=== PATIENT | male | born 1965 | race Caucasian/White ===

== ENCOUNTER 2016-08-18 08:47 | Emergency (ER) | payer MEDICAID ==
[2016-08-18 08:47] VITALS: BMI 27.3
[2016-08-18 08:59] VITALS: TEMP 97.9
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
[2016-08-18] MEDS ORDERED: HYDROmorphone 0.5 mg/0.5 ml ISec IM STA (09:49)
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
[2016-08-18] MEDS ORDERED: HYDROmorphone 1 mg/ml ISec ONE ×2 (10:18→12:04)
[2016-08-18 11:54] VITALS: BP 156/98; PULSE 77; RESP 18
[2016-08-18] MEDS ORDERED: HYDROmorphone 1 mg/ml ISec IM STA (12:00)
[2016-08-18 13:09] VITALS: O2SAT 97
== END 2016-08-18 13:28 | disposition home or self-care (01) ==
LOC: C.ER 08:47
DX: M54.5 Low back pain (principal)

== ENCOUNTER 2017-08-19 13:37 | Inpatient (IN) | payer MEDICAID ==
[2017-08-19 13:37] VITALS: BMI 27.3
[2017-08-19] MEDS ORDERED: Sodium Chloride 0.9% 1,000 ML ONE ×2 (14:01→14:51)
[2017-08-19] MEDS ORDERED: Sodium Chloride 0.9% 1,000 ML IV ONE ×2 (14:09→14:58)
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
[2017-08-19 14:38] LABS: PROTHROMBIN TIME 11.5 SECONDS (9.7-12.2)
[2017-08-19 14:49] LABS: BASO % 0.9 % (0.0-2.0); EOS % 1.6 % (0.0-4.0); HEMOGLOBIN 15.4 g/dL (12.0-18.0); LYMPH % 24.2 % (20.0-40.0); MEAN CELL VOLUME 86.6 fL (80.0-94.0); MEAN CORPUSCULAR HEMOGLOBIN 29.9 pg (27.0-31.0); MEAN CORPUSCULAR HGB CONC 34.5 g/dL (33.0-37.0); MEAN PLATELET VOLUME 7.8 fL (7.2-11.7); MONO % 6.8 % (0.0-10.0); NEUT % 66.5 % (50.0-75.0); RBC 5.17 Mil/uL (4.40-5.90); RED CELL DISTRIBUTION WIDTH 14.5 % (11.5-14.5); WHITE BLOOD COUNT 9.2 K/uL (4.8-10.8)
[2017-08-19 14:50] LABS: BASO # 0.1 K/uL (0.0-0.2); EOS # 0.1 K/uL (0.0-0.7); LYMPH # 2.2 K/uL (1.0-4.3); MONO # 0.6 K/uL (0.0-0.8); NEUT # 6.1 K/uL (1.8-7.0)
[2017-08-19 14:55] LABS: ALB/GLOB RATIO 1.5 (1.0-2.1); ALBUMIN 4.7 g/dL (3.5-5.0); ALT/SGPT 52 U/L (21-72); AST/SGOT 25 U/L (17-59); BLOOD UREA NITROGEN 12 mg/dL (9-20); CALCIUM 9.1 mg/dl (8.6-10.4); GFR AFRICAN-AMERICAN > 60; GFR NON-AFRICAN AMERICAN > 60; LIPASE 60 U/L (23-300)
[2017-08-19] MEDS ORDERED: Potassium Chloride 20 mEq ER Tab PO STA (14:56)
[2017-08-19] MEDS ORDERED: Iohexol 350mg/ml 100 ML ONE (15:05)
[2017-08-19 15:15] LABS: URINE BILIRUBIN NEGATIVE (NEGATIVE); URINE BLOOD NEGATIVE (NEGATIVE); URINE CLARITY Clear (Clear); URINE COLOR Straw (YELLOW); URINE GLUCOSE (UA) NORMAL (Normal); URINE LEUKOCYTE ESTERASE NEG Leu/uL (Negative); URINE PROTEIN NEGATIVE (NEGATIVE); URINE UROBILINOGEN NORMAL mg/dL (0.2-1.0)
[2017-08-19] MEDS ORDERED: Potassium Chloride 20 mEq ER Tab PO ONE (15:29)
[2017-08-19] MEDS ORDERED: Piperacillin/Tazobact 3.375 GM in Sodium Chloride 100 ML IVPB STA (16:51)
--- NOTE | 2017-08-19 16:52 | CT ---
PROCEDURE: CT Abdomen and Pelvis with contrast HISTORY: abd pain, vomiting COMPARISON: 12/20/2015 TECHNIQUE: Contrast dose: 100 mL Visipaque 320 Radiation dose: Total exam DLP = 793.54 mGy-cm. This CT exam was performed using one or more of the following dose reduction techniques: Automated exposure control, adjustment of the mA and/or kV according to patient size, and/or use of iterative reconstruction technique. FINDINGS: LOWER THORAX: Minimal bilateral dependent lower lobe atelectasis. No infiltrate. LIVER: Normal size and contour. Diffusely diminished attenuation consistent with fatty infiltration. No mass. No biliary ductal dilatation. Mild focal fatty sparing about the gallbladder fossa. GALLBLADDER AND BILE DUCTS: Unremarkable. PANCREAS: Unremarkable. No gross lesion or ductal dilatation. SPLEEN: Unremarkable. ADRENALS: Stable 1.7 cm low-density right adrenal mass, likely adrenal adenoma. KIDNEYS AND URETERS: Right parapelvic renal cyst, 1.8 cm, slightly increased in size from prior examination. Recommend correlation with ultrasound examination. No other renal mass. No calculus or hydronephrosis. VASCULATURE: Unremarkable. No aortic aneurysm. BOWEL: Probable early acute diverticulitis at the descending/sigmoid colonic junction. Extensive sigmoid diverticulosis with mural thickening suggestive of chronic muscular hypertrophy.. Jejunojejunostomy noted in left upper quadrant of abdomen. Ectatic loop noted at the jejunostomy site as on prior examination. Multiple dilated small bowel loops noted in the central abdomen. Cannot rule out early mechanical bowel obstruction. Followup advised. APPENDIX: Normal appendix. PERITONEUM: Unremarkable. No free fluid. No free air. LYMPH NODES: Unremarkable. No enlarged lymph nodes. BLADDER: Poorly distended. Grossly unremarkable. REPRODUCTIVE: Normal prostate BONES: No acute fracture. OTHER FINDINGS: None. IMPRESSION: Probable early acute diverticulitis at the descending/sigmoid colonic junction. Chronic diverticulosis of the sigmoid colon. Dilated small bowel loops in the central abdomen common nonspecific. Cannot rule out early mechanical bowel obstruction. Followup advised. Status post jejunojejunostomy. Fatty liver. Stable right adrenal mass, likely adenoma. Increasing size of right parapelvic renal cyst. Recommend correlation with renal ultrasound examination on a nonemergent basis.
[2017-08-19] MEDS ORDERED: Piperacillin/Tazobact 3.375 gm 100 ML IVPB ONE (17:00)
[2017-08-19] MEDS ORDERED: HYDROmorphone 1 mg/ml ISec IVP PRN (19:30)
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
[2017-08-19 20:17] VITALS: RESP 20
[2017-08-19] MEDS: Piperacill/Tazo 3.375gm in Dex 3.375 GM/50 ML BAG IVPB SCH (22:59)
[2017-08-20] MEDS ORDERED: HYDROmorphone 0.5 mg/0.5 ml ISec IVP PRN (01:45)
[2017-08-20] MEDS: Piperacill/Tazo 3.375gm in Dex 3.375 GM/50 ML BAG IVPB SCH ×3 (06:06→22:06)
[2017-08-20] MEDS: Metoprolol Succinate 50 mg XL Tab PO SCH (10:13)
[2017-08-20] MEDS: Enoxaparin 40 mg Syringe SC SCH (10:13)
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
[2017-08-20] MEDS: metroNIDAZOLE IV 500 mg/100 ml 500 MG/100 ML BAG IVPB SCH ×3 (16:18→23:42)
[2017-08-20 17:08] LABS: BASO % 0.5 % (0.0-2.0); EOS # 0.3 K/uL (0.0-0.7); EOS % 4.9 % (0.0-4.0); HEMOGLOBIN 13.9 g/dL (12.0-18.0); LYMPH # 2.9 K/uL (1.0-4.3); LYMPH % 41.3 % (20.0-40.0); MEAN CELL VOLUME 87.1 fL (80.0-94.0); MEAN CORPUSCULAR HEMOGLOBIN 29.6 pg (27.0-31.0); MEAN PLATELET VOLUME 7.8 fL (7.2-11.7); MONO # 0.6 K/uL (0.0-0.8); MONO % 9.3 % (0.0-10.0); NRBC % 0.1 % (0.0-2.0); RBC 4.69 Mil/uL (4.40-5.90); RED CELL DISTRIBUTION WIDTH 14.3 % (11.5-14.5); WHITE BLOOD COUNT 6.9 K/uL (4.8-10.8)
[2017-08-20 17:31] LABS: ALB/GLOB RATIO 1.3 (1.0-2.1); ALBUMIN 4.1 g/dL (3.5-5.0); ALT/SGPT 39 U/L (21-72); AST/SGOT 23 U/L (17-59); BLOOD UREA NITROGEN 13 mg/dL (9-20); CALCIUM 8.3 mg/dl (8.6-10.4); GFR AFRICAN-AMERICAN > 60; GFR NON-AFRICAN AMERICAN > 60
--- NOTE | 2017-08-20 17:42 | CP.PCM.PN ---
Subjective - Date & Time of Evaluation Date of Evaluation: 08/20/17 Time of Evaluation: 08:40 - Subjective Subjective: clinically same Objective - Vital Signs/Intake and Output Vital Signs (last 24 hours): Temp Pulse Resp BP Pulse Ox 98.0 F 77 20 131/88 94 L 08/20/17 15:00 08/20/17 15:00 08/20/17 15:00 08/20/17 15:00 08/20/17 15:00 Intake and Output: 08/20/17 08/20/17 06:59 18:59 Intake Total 0 Balance 0 - Medications Medications: Current Medications Amlodipine Besylate (Norvasc) 10 mg PO DAILY [facility] Last Admin: 08/20/17 10:13 Dose: 10 mg Clopidogrel Bisulfate (Plavix) 75 mg PO DAILY [facility] Last Admin: 08/20/17 10:13 Dose: 75 mg Enoxaparin Sodium (Lovenox) 40 mg SC DAILY [facility] Last Admin: 08/20/17 10:13 Dose: 40 mg Hydrochlorothiazide (Hydrodiuril) 25 mg PO DAILY [facility] Last Admin: 08/20/17 10:13 Dose: 25 mg Hydromorphone HCl (Dilaudid) 1 mg IVP Q8H PRN PRN Reason: Pain, moderate (4-7) Piperacillin Sod/Tazobactam Sod (Zosyn 3.375 Gm Iv Premix) 3.375 gm in 50 mls @ 100 mls/hr IVPB Q8H [facility] PRN Reason: Protocol Last Admin: 08/20/17 14:36 Dose: 100 mls/hr Metronidazole (Flagyl) 500 mg in 100 mls @ 100 mls/hr IVPB Q8H [facility] PRN Reason: Protocol Losartan Potassium (Cozaar) 100 mg PO DAILY [facility] Last Admin: 08/20/17 10:00 Dose: 100 mg Metoprolol Succinate (Toprol Xl) 50 mg PO DAILY [facility] Last Admin: 08/20/17 10:13 Dose: 50 mg Paroxetine HCl (Paxil) 10 mg PO DAILY [facility] Last Admin: 08/20/17 10:00 Dose: 10 mg Potassium Chloride (K-Dur 20 Meq Er Tab) 20 meq PO DAILY [facility] Rosuvastatin Calcium (Crestor) 10 mg PO HS [facility] Last Admin: 08/19/17 21:22 Dose: 10 mg - Labs Labs: 08/20/17 16:58 08/20/17 17:15 PT 11.5 SECONDS (9.7-12.2) 08/19/17 14:44 INR 1.0 08/19/17 14:44 APTT 33 SECONDS (21-34) 08/19/17 14:44 - Constitutional Appears: Well - Head Exam Head Exam: ATRAUMATIC, NORMAL INSPECTION, NORMOCEPHALIC - Eye Exam Eye Exam: EOMI, Normal appearance, PERRL Pupil Exam: NORMAL ACCOMODATION, PERRL - ENT Exam ENT Exam: Mucous Membranes Moist, Normal Exam - Neck Exam Neck Exam: Full ROM, Normal Inspection. absent: Lymphadenopathy - Respiratory Exam Respiratory Exam: Decreased Breath Sounds - Cardiovascular Exam Cardiovascular Exam: REGULAR RHYTHM, +S1, +S2 - GI/Abdominal Exam GI & Abdominal Exam: Soft, Diminished Bowel Sounds - Rectal Exam Rectal Exam: Deferred
[2017-08-20] MEDS: Potassium Chloride 20 mEq ER Tab PO SCH (18:17)
[2017-08-20] MEDS ORDERED: HYDROmorphone 1 mg/ml ISec IVP PRN (22:15)
[2017-08-21] MEDS: Piperacill/Tazo 3.375gm in Dex 3.375 GM/50 ML BAG IVPB SCH ×3 (06:12→22:06)
--- NOTE | 2017-08-21 07:38 | CP.PCM.PN ---
<Marietta Díaz - Last Filed: 08/21/17 09:54> Subjective - Date & Time of Evaluation Date of Evaluation: 08/21/17 Time of Evaluation: 07:00 - Subjective Subjective: Gastroenterology Follow Up Patient was seen and examined at bedside. Patient is tolerating CLD. Reports first bowel movement since admission this morning. Normal, nonbloody formed stool. Patient continues to have mild abdominal pain. 12 point ROS unremarkable. Objective - Vital Signs/Intake and Output Vital Signs (last 24 hours): Temp Pulse Resp BP Pulse Ox 98 F 74 20 132/85 94 L 08/21/17 00:00 08/21/17 00:00 08/21/17 00:00 08/21/17 00:00 08/21/17 00:00 Intake and Output: 08/21/17 08/21/17 06:59 18:59 Intake Total 600 Balance 600 - Medications Medications: Current Medications Amlodipine Besylate (Norvasc) 10 mg PO DAILY [facility] Last Admin: 08/20/17 10:13 Dose: 10 mg Clopidogrel Bisulfate (Plavix) 75 mg PO DAILY [facility] Last Admin: 08/20/17 10:13 Dose: 75 mg Enoxaparin Sodium (Lovenox) 40 mg SC DAILY [facility] Last Admin: 08/20/17 10:13 Dose: 40 mg Hydrochlorothiazide (Hydrodiuril) 25 mg PO DAILY [facility] Last Admin: 08/20/17 10:13 Dose: 25 mg Hydromorphone HCl (Dilaudid) 1 mg IVP Q8H PRN PRN Reason: Pain, moderate (4-7) Piperacillin Sod/Tazobactam Sod (Zosyn 3.375 Gm Iv Premix) 3.375 gm in 50 mls @ 100 mls/hr IVPB Q8H [facility] PRN Reason: Protocol Last Admin: 08/21/17 06:12 Dose: 100 mls/hr Metronidazole (Flagyl) 500 mg in 100 mls @ 100 mls/hr IVPB Q8H [facility] PRN Reason: Protocol Last Admin: 08/20/17 23:42 Dose: 100 mls/hr Losartan Potassium (Cozaar) 100 mg PO DAILY [facility] Last Admin: 08/20/17 10:00 Dose: 100 mg Metoprolol Succinate (Toprol Xl) 50 mg PO DAILY [facility] Last Admin: 08/20/17 10:13 Dose: 50 mg Paroxetine HCl (Paxil) 10 mg PO DAILY [facility] Last Admin: 08/20/17 10:00 Dose: 10 mg Potassium Chloride (K-Dur 20 Meq Er Tab) 20 meq PO DAILY [facility] Last Admin: 08/20/17 18:17 Dose: 20 meq Rosuvastatin Calcium (Crestor) 10 mg PO HS [facility] Last Admin: 08/20/17 22:01 Dose: 10 mg - Labs Labs: 08/20/17 16:58 08/20/17 17:15 PT 11.5 SECONDS (9.7-12.2) 08/19/17 14:44 INR 1.0 08/19/17 14:44 APTT 33 SECONDS (21-34) 08/19/17 14:44 - Constitutional Appears: No Acute Distress - Head Exam Head Exam: NORMAL INSPECTION, NORMOCEPHALIC - Eye Exam Eye Exam: EOMI, Normal appearance Pupil Exam: NORMAL ACCOMODATION - ENT Exam ENT Exam: Mucous Membranes Moist - Respiratory Exam Respiratory Exam: Clear to Ausculation Bilateral, NORMAL BREATHING PATTERN - Cardiovascular Exam Cardiovascular Exam: REGULAR RHYTHM - GI/Abdominal Exam GI & Abdominal Exam: Soft, Tenderness (TTP - LLQ, LRQ ), Normal Bowel Sounds. absent: Distended, Organomegaly - Rectal Exam Rectal Exam: Deferred - Extremities Exam Extremities Exam: Normal Inspection. absent: Pedal Edema, Tenderness - Neurological Exam Neurological Exam: Alert, Awake, Oriented x3 - Psychiatric Exam Psychiatric exam: Normal Affect, Normal Mood - Skin Skin Exam: Dry, Intact, Normal Color, Warm Assessment and Plan - Assessment and Plan (Free Text) Assessment: Fili Benavides is a 52M w/ hx of recurrent diverticulitis, HTN, HL who presents to the ER with complaints of LLQ pain. CT revealed uncomplicated ascending/ sigmoid diverticulitis. Colonoscopy 5 years ago, [facility] [place] unremarkable. Acute sigmoid/ascending diverticulitis Hx of diverticulitis Plan: - Diet advanced to low residue diet - Continue antibiotics, complete outpatient course of cipro and flagyl for 10 days - Will need colonoscopy 8 weeks post hospitalization - Recommend f/u with primary outside sales executive in [facility] [place] - Recommend Surgery consult due to recurrent diverticulitis - We will continue to monitor patient DW Marietta Montero DO, PGY-1 <Ruben Joseph - Last Filed: 08/21/17 10:15> Objective - Vital Signs/Intake and Output Vital Signs (last 24 hours): Temp Pulse Resp BP Pulse Ox 98.6 F 69 20 146/96 H 95 08/21/17 07:47 08/21/17 07:47 08/21/17 07:47 08/21/17 07:47 08/21/17 07:47 Intake and Output: 08/21/17 08/21/17 06:59 18:59 Intake Total 600 Balance 600 - Medications Medications: Current Medications Amlodipine Besylate (Norvasc) 10 mg PO DAILY [facility] Last Admin: 08/21/17 10:06 Dose: 10 mg Clopidogrel Bisulfate (Plavix) 75 mg PO DAILY [facility] Last Admin: 08/21/17 10:07 Dose: 75 mg Enoxaparin Sodium (Lovenox) 40 mg SC DAILY [facility] Last Admin: 08/21/17 10:07 Dose: 40 mg Hydrochlorothiazide (Hydrodiuril) 25 mg PO DAILY [facility] Last Admin: 08/21/17 10:07 Dose: 25 mg Hydromorphone HCl (Dilaudid) 1 mg IVP Q8H PRN PRN Reason: Pain, moderate (4-7) Piperacillin Sod/Tazobactam Sod (Zosyn 3.375 Gm Iv Premix) 3.375 gm in 50 mls @ 100 mls/hr IVPB Q8H [facility] PRN Reason: Protocol Last Admin: 08/21/17 06:12 Dose: 100 mls/hr Metronidazole (Flagyl) 500 mg in 100 mls @ 100 mls/hr IVPB Q8H [facility] PRN Reason: Protocol Last Admin: 08/21/17 08:38 Dose: 100 mls/hr Losartan Potassium (Cozaar) 100 mg PO DAILY [facility] Last Admin: 08/21/17 10:08 Dose: 100 mg Metoprolol Succinate (Toprol Xl) 50 mg PO DAILY [facility] Last Admin: 08/21/17 10:07 Dose: 50 mg Paroxetine HCl (Paxil) 10 mg PO DAILY [facility] Last Admin: 08/21/17 10:07 Dose: 10 mg Potassium Chloride (K-Dur 20 Meq Er Tab) 20 meq PO DAILY [facility] Last Admin: 08/21/17 10:07 Dose: 20 meq Rosuvastatin Calcium (Crestor) 10 mg PO HS [facility] Last Admin: 08/20/17 22:01 Dose: 10 mg - Labs Labs: 08/20/17 16:58 08/20/17 17:15 PT 11.5 SECONDS (9.7-12.2) 08/19/17 14:44 INR 1.0 08/19/17 14:44 APTT 33 SECONDS (21-34) 08/19/17 14:44 Attending/Attestation - Attestation I have personally seen and examined this patient.: Yes I have fully participated in the care of the patient.: Yes I have reviewed all pertinent clinical information, including history, physical exam and plan: Yes Notes (Text): 08/21/17 10:14 Patient seen with GI fellow. This is a 52 yr old M with history of recurrent diverticulitis, last episode about 2 years ago with last colonoscopy 5 years ago with GI in [facility] [place], then now admitted with complaints of LLQ pain. CT revealed uncomplicated ascending/sigmoid diverticulitis. pain is controlled today and he denies nausea, vomiting or constipation. Plan: - Advance diet to low residue today -continue abx, complete outpatient course of cipro and flagyl for 10 day course -will need colonoscopy 8 weeks post hospitalization -recommend f/u with primary outside sales executive at [facility] [place] - recommend surgical consult for recurrent diverticulitis
[2017-08-21] MEDS: metroNIDAZOLE IV 500 mg/100 ml 500 MG/100 ML BAG IVPB SCH ×3 (08:38→23:20)
[2017-08-21] MEDS ORDERED: Metoprolol Succinate 50 mg XL Tab PO SCH (10:00)
[2017-08-21] MEDS: Metoprolol Succinate 50 mg XL Tab PO SCH (10:07)
[2017-08-21] MEDS: Potassium Chloride 20 mEq ER Tab PO SCH (10:07)
[2017-08-21] MEDS: Enoxaparin 40 mg Syringe SC SCH (10:07)
[2017-08-21 11:20] LABS: BASO % 0.5 % (0.0-2.0); EOS # 0.3 K/uL (0.0-0.7); EOS % 4.7 % (0.0-4.0); HEMOGLOBIN 14.8 g/dL (12.0-18.0); LYMPH # 2.4 K/uL (1.0-4.3); LYMPH % 36.3 % (20.0-40.0); MEAN CELL VOLUME 86.8 fL (80.0-94.0); MEAN CORPUSCULAR HEMOGLOBIN 29.6 pg (27.0-31.0); MEAN CORPUSCULAR HGB CONC 34.1 g/dL (33.0-37.0); MEAN PLATELET VOLUME 7.6 fL (7.2-11.7); MONO # 0.6 K/uL (0.0-0.8); MONO % 8.3 % (0.0-10.0); NEUT # 3.4 K/uL (1.8-7.0); NEUT % 50.2 % (50.0-75.0); NRBC % 0.1 % (0.0-2.0); RBC 4.98 Mil/uL (4.40-5.90); RED CELL DISTRIBUTION WIDTH 14.4 % (11.5-14.5); WHITE BLOOD COUNT 6.7 K/uL (4.8-10.8)
[2017-08-21 11:36] LABS: ALB/GLOB RATIO 1.3 (1.0-2.1); ALBUMIN 4.4 g/dL (3.5-5.0); ALT/SGPT 39 U/L (21-72); AST/SGOT 21 U/L (17-59); BLOOD UREA NITROGEN 11 mg/dL (9-20); CALCIUM 8.8 mg/dl (8.6-10.4); GFR AFRICAN-AMERICAN > 60; GFR NON-AFRICAN AMERICAN > 60
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
--- NOTE | 2017-08-21 15:16 | CP.PCM.PN ---
Subjective - Date & Time of Evaluation Date of Evaluation: 08/21/17 Time of Evaluation: 08:00 - Subjective Subjective: clinically same Objective - Vital Signs/Intake and Output Vital Signs (last 24 hours): Temp Pulse Resp BP Pulse Ox 98.6 F 69 20 146/96 H 95 08/21/17 07:47 08/21/17 07:47 08/21/17 07:47 08/21/17 07:47 08/21/17 07:47 Intake and Output: 08/21/17 08/21/17 06:59 18:59 Intake Total 600 Balance 600 - Medications Medications: Current Medications Amlodipine Besylate (Norvasc) 10 mg PO DAILY [facility] Last Admin: 08/21/17 10:06 Dose: 10 mg Clopidogrel Bisulfate (Plavix) 75 mg PO DAILY [facility] Last Admin: 08/21/17 10:07 Dose: 75 mg Enoxaparin Sodium (Lovenox) 40 mg SC DAILY [facility] Last Admin: 08/21/17 10:07 Dose: 40 mg Hydrochlorothiazide (Hydrodiuril) 25 mg PO DAILY [facility] Last Admin: 08/21/17 10:07 Dose: 25 mg Hydromorphone HCl (Dilaudid) 1 mg IVP Q8H PRN PRN Reason: Pain, moderate (4-7) Piperacillin Sod/Tazobactam Sod (Zosyn 3.375 Gm Iv Premix) 3.375 gm in 50 mls @ 100 mls/hr IVPB Q8H [facility] PRN Reason: Protocol Last Admin: 08/21/17 14:57 Dose: 100 mls/hr Metronidazole (Flagyl) 500 mg in 100 mls @ 100 mls/hr IVPB Q8H [facility] PRN Reason: Protocol Last Admin: 08/21/17 08:38 Dose: 100 mls/hr Losartan Potassium (Cozaar) 100 mg PO DAILY [facility] Last Admin: 08/21/17 10:08 Dose: 100 mg Metoprolol Succinate (Toprol Xl) 50 mg PO DAILY [facility] Last Admin: 08/21/17 10:07 Dose: 50 mg Paroxetine HCl (Paxil) 10 mg PO DAILY [facility] Last Admin: 08/21/17 10:07 Dose: 10 mg Potassium Chloride (K-Dur 20 Meq Er Tab) 20 meq PO DAILY [facility] Last Admin: 08/21/17 10:07 Dose: 20 meq Rosuvastatin Calcium (Crestor) 10 mg PO HS [facility] Last Admin: 08/20/17 22:01 Dose: 10 mg - Labs Labs: 08/21/17 10:59 08/21/17 10:59 PT 11.5 SECONDS (9.7-12.2) 08/19/17 14:44 INR 1.0 08/19/17 14:44 APTT 33 SECONDS (21-34) 08/19/17 14:44 - Constitutional Appears: Well - Head Exam Head Exam: ATRAUMATIC, NORMAL INSPECTION, NORMOCEPHALIC - Eye Exam Eye Exam: EOMI, Normal appearance, PERRL Pupil Exam: NORMAL ACCOMODATION, PERRL - ENT Exam ENT Exam: Mucous Membranes Moist, Normal Exam - Neck Exam Neck Exam: Full ROM, Normal Inspection. absent: Lymphadenopathy - Respiratory Exam Respiratory Exam: Decreased Breath Sounds - Cardiovascular Exam Cardiovascular Exam: REGULAR RHYTHM, +S1, +S2 - GI/Abdominal Exam GI & Abdominal Exam: Soft, Diminished Bowel Sounds - Rectal Exam Rectal Exam: Deferred Assessment and Plan - Assessment and Plan (Free Text) Plan: Repeat CAT scan today does not reveal small bowel obstructions Continue IV antibiotic Patient is a diarrhea so will do stool C. difficile Workup for adrenal nodule as an outpatient Continue as ordered
[2017-08-21] MEDS ORDERED: Iohexol 240 (50 ml) PO ONE (16:30)
[2017-08-21] MEDS ORDERED: Iohexol 300 100 ML IJ ONE (17:28)
--- NOTE | 2017-08-21 19:28 | CT ---
EXAM: CT Abdomen and Pelvis With Intravenous Contrast EXAM DATE/TIME: 08/21/2017 2:48 PM CLINICAL HISTORY: 52 years old, male; Pain; Abdominal pain; Flank; Right lower quadrant (rlq); Additional info: Abdominal pain , R/O obstruction TECHNIQUE: Axial computed tomography images of the abdomen and pelvis with intravenous contrast. All CT scans at this facility use one or more dose reduction techniques, viz.: automated exposure control; ma/kV adjustment per patient size (including targeted exams where dose is matched to indication; i.e. head); or iterative reconstruction technique. Coronal and sagittal reformatted images were created and reviewed. CONTRAST: 100 mL of omnipaque 300 administered intravenously. COMPARISON: There are no prior studies for comparison. FINDINGS: Lower thorax: Heart size is normal. There is subsegmental atelectasis/at the lung bases. There is dependent atelectasis at the lung bases. There are no effusions. ABDOMEN: Liver: There is fatty infiltration of the liver. Gallbladder and bile ducts: unremarkable Pancreas: unremarkable Spleen: unremarkable Adrenals: There is nodular thickening of both adrenals. There is a 1.7 x 2.2 cm right adrenal nodule. Kidneys and ureters: unremarkable Stomach and bowel: Stomach is almost completely empty. Rotation is normal. There is an enteral anastomosis in the left upper quadrant. Small bowel edema anastomosis is mildly distended. There is no small bowel obstruction. Small bowel distal to the anastomosis is opacified with contrast. Ileocecal region is unremarkable. Appendix and terminal ileum are unremarkable. There is scattered diverticulosis Appendix: See stomach and bowel PELVIS: Bladder: unremarkable Reproductive: Seminal vesicles and prostate are unremarkable. ABDOMEN and PELVIS: Intraperitoneal space: There is no free air or free fluid. Bones/joints: There are degenerative changes in the osseus structures. Soft tissues: unremarkable Vasculature: There is occasional atherosclerotic calcification in the aorta and iliacs. Lymph nodes: There is no pathologic adenopathy. IMPRESSION: Fatty liver; 1.7 x 2.2 cm right adrenal nodule; no renal or ureteral stones or hydronephrosis; enteral anastomosis in the left upper quadrant, no small bowel obstruction; no CT findings of appendicitis or diverticulitis Additional nonemergent findings as described above.
[2017-08-22] MEDS: Piperacill/Tazo 3.375gm in Dex 3.375 GM/50 ML BAG IVPB SCH (06:01)
--- NOTE | 2017-08-22 07:29 | CP.PCM.PN ---
<Shira Vu - Last Filed: 08/22/17 09:31> Subjective - Date & Time of Evaluation Date of Evaluation: 08/22/17 Time of Evaluation: 06:40 - Subjective Subjective: PGY4 GI Follow-up Pt seen and examined bedside Had 3-4 episodes of loose BM after eating fish and rice Denies any abd pain tolerating food ROS: 10 point ROS conducted, neg other than above Objective - Vital Signs/Intake and Output Vital Signs (last 24 hours): Temp Pulse Resp BP Pulse Ox 98.0 F 69 20 135/84 96 08/22/17 00:00 08/22/17 00:00 08/22/17 00:00 08/22/17 00:00 08/22/17 00:00 Intake and Output: 08/22/17 08/22/17 06:59 18:59 Intake Total 1550 Balance 1550 - Medications Medications: Current Medications Amlodipine Besylate (Norvasc) 10 mg PO DAILY [facility] Last Admin: 08/21/17 10:06 Dose: 10 mg Clopidogrel Bisulfate (Plavix) 75 mg PO DAILY [facility] Last Admin: 08/21/17 10:07 Dose: 75 mg Enoxaparin Sodium (Lovenox) 40 mg SC DAILY [facility] Last Admin: 08/21/17 10:07 Dose: 40 mg Hydrochlorothiazide (Hydrodiuril) 25 mg PO DAILY [facility] Last Admin: 08/21/17 10:07 Dose: 25 mg Hydromorphone HCl (Dilaudid) 1 mg IVP Q8H PRN PRN Reason: Pain, moderate (4-7) Last Admin: 08/21/17 20:57 Dose: 1 mg Piperacillin Sod/Tazobactam Sod (Zosyn 3.375 Gm Iv Premix) 3.375 gm in 50 mls @ 100 mls/hr IVPB Q8H [facility] PRN Reason: Protocol Last Admin: 08/22/17 06:01 Dose: 100 mls/hr Metronidazole (Flagyl) 500 mg in 100 mls @ 100 mls/hr IVPB Q8H [facility] PRN Reason: Protocol Last Admin: 08/21/17 23:20 Dose: 100 mls/hr Losartan Potassium (Cozaar) 100 mg PO DAILY [facility] Last Admin: 08/21/17 10:08 Dose: 100 mg Metoprolol Succinate (Toprol Xl) 50 mg PO DAILY [facility] Last Admin: 08/21/17 10:07 Dose: 50 mg Paroxetine HCl (Paxil) 10 mg PO DAILY [facility] Last Admin: 08/21/17 10:07 Dose: 10 mg Potassium Chloride (K-Dur 20 Meq Er Tab) 20 meq PO DAILY [facility] Last Admin: 08/21/17 10:07 Dose: 20 meq Rosuvastatin Calcium (Crestor) 10 mg PO HS [facility] Last Admin: 08/21/17 22:06 Dose: 10 mg - Labs Labs: 08/21/17 10:59 08/21/17 10:59 PT 11.5 SECONDS (9.7-12.2) 08/19/17 14:44 INR 1.0 08/19/17 14:44 APTT 33 SECONDS (21-34) 08/19/17 14:44 - Constitutional Appears: Well, No Acute Distress - Head Exam Head Exam: ATRAUMATIC, NORMOCEPHALIC - Eye Exam Eye Exam: Normal appearance - ENT Exam ENT Exam: Mucous Membranes Moist, Normal Exam - Neck Exam Neck Exam: Normal Inspection - Respiratory Exam Respiratory Exam: Clear to Ausculation Bilateral, NORMAL BREATHING PATTERN. absent: Rales, Rhonchi, Wheezes, Respiratory Distress - Cardiovascular Exam Cardiovascular Exam: REGULAR RHYTHM, +S1, +S2 - GI/Abdominal Exam GI & Abdominal Exam: Soft, Normal Bowel Sounds. absent: Guarding, Rigid, Tenderness, Hyperactive Bowel Sounds, Organomegaly - Extremities Exam Extremities Exam: absent: Joint Swelling, Pedal Edema - Neurological Exam Neurological Exam: Alert, Awake, Oriented x3 - Psychiatric Exam Psychiatric exam: Normal Affect, Normal Mood - Skin Skin Exam: Dry, Intact, Normal Color, Warm Assessment and Plan - Assessment and Plan (Free Text) Assessment: Fili Benavides is a 52M w/ hx of recurrent diverticulitis, HTN, HL who presents to the ER with complaints of LLQ pain. CT revealed uncomplicated ascending/ sigmoid diverticulitis. [place] [facility]remark[place]. Acute sigmoid/ascending diverticulitis Hx of diverticulitis Diarrhea Plan: - continue diet - Continue antibiotics, complete outpatient course of cipro and flagyl for 10 days; will d/c zosyn - Will need colonoscopy 8 weeks post hospitalization - Recommend f/u with primary sling operator [place] [facility] - if pt continues to have diarrhea, will get stool cultures and c. diff - surgery consult appreciated will DW Dr. Cazares <Nito Cazares - Last Filed: 08/22/17 09:40> Objective - Vital Signs/Intake and Output Vital Signs (last 24 hours): Temp Pulse Resp BP Pulse Ox 98.4 F 77 20 137/74 97 08/22/17 07:37 08/22/17 07:37 08/22/17 07:37 08/22/17 07:37 08/22/17 07:37 Intake and Output: 08/22/17 08/22/17 06:59 18:59 Intake Total 1550 Balance 1550 - Medications Medications: Current Medications Amlodipine Besylate (Norvasc) 10 mg PO DAILY [facility] Last Admin: 08/21/17 10:06 Dose: 10 mg Clopidogrel Bisulfate (Plavix) 75 mg PO DAILY [facility] Last Admin: 08/21/17 10:07 Dose: 75 mg Enoxaparin Sodium (Lovenox) 40 mg SC DAILY [facility] Last Admin: 08/21/17 10:07 Dose: 40 mg Hydrochlorothiazide (Hydrodiuril) 25 mg PO DAILY [facility] Last Admin: 08/21/17 10:07 Dose: 25 mg Hydromorphone HCl (Dilaudid) 1 mg IVP Q8H PRN PRN Reason: Pain, moderate (4-7) Last Admin: 08/21/17 20:57 Dose: 1 mg Metronidazole (Flagyl) 500 mg in 100 mls @ 100 mls/hr IVPB Q8H [facility] PRN Reason: Protocol Last Admin: 08/22/17 08:23 Dose: 100 mls/hr Losartan Potassium (Cozaar) 100 mg PO DAILY [facility] Last Admin: 08/21/17 10:08 Dose: 100 mg Metoprolol Succinate (Toprol Xl) 50 mg PO DAILY [facility] Last Admin: 08/21/17 10:07 Dose: 50 mg Paroxetine HCl (Paxil) 10 mg PO DAILY [facility] Last Admin: 08/21/17 10:07 Dose: 10 mg Potassium Chloride (K-Dur 20 Meq Er Tab) 20 meq PO DAILY [facility] Last Admin: 08/21/17 10:07 Dose: 20 meq Rosuvastatin Calcium (Crestor) 10 mg PO HS [facility] Last Admin: 08/21/17 22:06 Dose: 10 mg - Labs Labs: 08/21/17 10:59 08/21/17 10:59 PT 11.5 SECONDS (9.7-12.2) 08/19/17 14:44 INR 1.0 08/19/17 14:44 APTT 33 SECONDS (21-34) 08/19/17 14:44 Attending/Attestation - Attestation I have personally seen and examined this patient.: Yes I have fully participated in the care of the patient.: Yes I have reviewed all pertinent clinical information, including history, physical exam and plan: Yes Notes (Text): 08/22/17 09:36 I have seen and examined patient with GI fellow. No acute events overnight, he is seen sitting in bed, appears comfortable. His abdominal pain has resolved and he denies nausea, vomiting, fever/chills. He had three loose bowel movements yesterday but is tolerating PO diet without difficulty. Review of vitals from today are normal. HTN Hyperlipidemia Abdominal pain, acute diverticulitis - Low residue diet as tolerated - Continue with antibiotic therapy to complete 10 day course - Follow up surgical recommendations - From GI standpoint ok to discharge patient home with subsequent outpatient follow up with primary GI physician, will need colonoscopy evaluation within 6- 8 weeks after symptom resolution along with surgical follow up. Will sign off case, please reconsult as necessary, thank you.
[2017-08-22] MEDS: metroNIDAZOLE IV 500 mg/100 ml 500 MG/100 ML BAG IVPB SCH (08:23)
[2017-08-22] MEDS: Potassium Chloride 20 mEq ER Tab PO SCH (10:07)
[2017-08-22] MEDS: Metoprolol Succinate 50 mg XL Tab PO SCH (10:07)
[2017-08-22] MEDS: Enoxaparin 40 mg Syringe SC SCH (10:14)
--- NOTE | 2017-08-22 11:28 | CP.PCM.PN ---
Subjective - Date & Time of Evaluation Date of Evaluation: 08/22/17 Time of Evaluation: 09:00 - Subjective Subjective: clinically same Objective - Vital Signs/Intake and Output Vital Signs (last 24 hours): Temp Pulse Resp BP Pulse Ox 98.4 F 77 20 137/74 97 08/22/17 07:37 08/22/17 07:37 08/22/17 07:37 08/22/17 07:37 08/22/17 07:37 Intake and Output: 08/22/17 08/22/17 06:59 18:59 Intake Total 1550 Balance 1550 - Medications Medications: Current Medications Amlodipine Besylate (Norvasc) 10 mg PO DAILY [facility] Last Admin: 08/22/17 10:07 Dose: 10 mg Clopidogrel Bisulfate (Plavix) 75 mg PO DAILY [facility] Last Admin: 08/22/17 10:07 Dose: 75 mg Enoxaparin Sodium (Lovenox) 40 mg SC DAILY [facility] Last Admin: 08/22/17 10:14 Dose: 40 mg Hydrochlorothiazide (Hydrodiuril) 25 mg PO DAILY [facility] Last Admin: 08/22/17 10:08 Dose: 25 mg Hydromorphone HCl (Dilaudid) 1 mg IVP Q8H PRN PRN Reason: Pain, moderate (4-7) Last Admin: 08/21/17 20:57 Dose: 1 mg Metronidazole (Flagyl) 500 mg in 100 mls @ 100 mls/hr IVPB Q8H [facility] PRN Reason: Protocol Last Admin: 08/22/17 08:23 Dose: 100 mls/hr Losartan Potassium (Cozaar) 100 mg PO DAILY [facility] Last Admin: 08/22/17 10:07 Dose: 100 mg Metoprolol Succinate (Toprol Xl) 50 mg PO DAILY [facility] Last Admin: 08/22/17 10:07 Dose: 50 mg Paroxetine HCl (Paxil) 10 mg PO DAILY [facility] Last Admin: 08/22/17 10:07 Dose: 10 mg Potassium Chloride (K-Dur 20 Meq Er Tab) 20 meq PO DAILY [facility] Last Admin: 08/22/17 10:07 Dose: 20 meq Rosuvastatin Calcium (Crestor) 10 mg PO HS [facility] Last Admin: 08/21/17 22:06 Dose: 10 mg - Labs Labs: 08/21/17 10:59 08/21/17 10:59 PT 11.5 SECONDS (9.7-12.2) 08/19/17 14:44 INR 1.0 08/19/17 14:44 APTT 33 SECONDS (21-34) 08/19/17 14:44 - Constitutional Appears: Well - Head Exam Head Exam: ATRAUMATIC, NORMAL INSPECTION, NORMOCEPHALIC - Eye Exam Eye Exam: EOMI, Normal appearance, PERRL Pupil Exam: NORMAL ACCOMODATION, PERRL - ENT Exam ENT Exam: Mucous Membranes Moist, Normal Exam - Neck Exam Neck Exam: Full ROM, Normal Inspection. absent: Lymphadenopathy - Respiratory Exam Respiratory Exam: Decreased Breath Sounds - Cardiovascular Exam Cardiovascular Exam: REGULAR RHYTHM, +S1, +S2 - GI/Abdominal Exam GI & Abdominal Exam: Soft, Diminished Bowel Sounds - Rectal Exam Rectal Exam: Deferred Assessment and Plan - Assessment and Plan (Free Text) Plan: Post diarrhea Dose of Imodium Continue Plavix status post KCl Status post CAT scan which revealed negative I discharged today
[2017-08-22 15:58] VITALS: BP 135/88; PULSE 72; TEMP 98.2; O2SAT 96
--- NOTE | 2017-08-22 17:59 | CP.PCM.PN ---
Subjective - Date & Time of Evaluation Date of Evaluation: 08/22/17 Time of Evaluation: 11:00 - Subjective Subjective: Alert and orientedx3, no abdominal pain or distress noted. Objective - Vital Signs/Intake and Output Vital Signs (last 24 hours): Temp Pulse Resp BP Pulse Ox 98.2 F 72 20 135/88 96 08/22/17 15:57 08/22/17 15:57 08/22/17 15:57 08/22/17 15:57 08/22/17 15:57 Intake and Output: 08/22/17 08/22/17 06:59 18:59 Intake Total 1550 Balance 1550 - Medications Medications: Current Medications Enoxaparin Sodium (Lovenox) 40 mg SC DAILY [facility] Last Admin: 08/22/17 10:14 Dose: 40 mg Hydrochlorothiazide (Hydrodiuril) 25 mg PO DAILY [facility] Last Admin: 08/22/17 10:08 Dose: 25 mg Hydromorphone HCl (Dilaudid) 1 mg IVP Q8H PRN PRN Reason: Pain, moderate (4-7) Last Admin: 08/21/17 20:57 Dose: 1 mg Metronidazole (Flagyl) 500 mg in 100 mls @ 100 mls/hr IVPB Q8H JENNIFER PRN Reason: Protocol Last Admin: 08/22/17 08:23 Dose: 100 mls/hr Losartan Potassium (Cozaar) 100 mg PO DAILY [facility] Last Admin: 08/22/17 10:07 Dose: 100 mg Metoprolol Succinate (Toprol Xl) 50 mg PO DAILY [facility] Last Admin: 08/22/17 10:07 Dose: 50 mg Paroxetine HCl (Paxil) 10 mg PO DAILY [facility] Last Admin: 08/22/17 10:07 Dose: 10 mg Potassium Chloride (K-Dur 20 Meq Er Tab) 20 meq PO DAILY [facility] Last Admin: 08/22/17 10:07 Dose: 20 meq Rosuvastatin Calcium (Crestor) 10 mg PO HS [facility] Last Admin: 08/21/17 22:06 Dose: 10 mg - Labs Labs: 08/21/17 10:59 08/21/17 10:59 PT 11.5 SECONDS (9.7-12.2) 08/19/17 14:44 INR 1.0 08/19/17 14:44 APTT 33 SECONDS (21-34) 08/19/17 14:44 Assessment and Plan - Assessment and Plan (Free Text) Assessment: Patient is seen and examined. Alert and orientedx3, tolerating diet. Cleared by GI, and surgery. Discussed with DR Dawit Vu, plan to discharge home on flagyl po for 7 days more. Advised to follow up with PMD and GI in 1 week.
--- NOTE | 2017-08-23 18:58 | CARD ---
APPROVED REPORT EKG Measurement Heart [id number] <Conclusion> Normal sinus rhythm Normal ECG
== END 2017-08-22 17:56 | disposition home or self-care (01) | DRG 183 ==
LOC: C.ER 13:37 → C.9E 17:05 → C.3T 17:33
PROVIDERS: ADMIT Internal Medicine Nephrology; ATTEND Internal Medicine Nephrology
DX: K57.32 Diverticulitis of large intestine without perforation or abscess without bleeding (principal); E78.00 Pure hypercholesterolemia, unspecified; I10 Essential (primary) hypertension; K21.9 Gastro-esophageal reflux disease without esophagitis; Z86.73 Personal history of transient ischemic attack (TIA), and cerebral infarction without residual deficits; R19.7 Diarrhea, unspecified